=== PATIENT | female | born 1980 | race Asian ===

== ENCOUNTER 2018-06-13 13:45 | Observation (INO) | payer OTHER, SELFPAY ==
[~2018-06-13] VITALS: Ht 160 cm; Wt 59.4 kg
== END 2018-06-13 15:30 | disposition home or self-care (01) ==
LOC: SPU 13:45
PROVIDERS: ADMIT Obstetrics & Gynecology; ATTEND Obstetrics & Gynecology
DX: O46.93 Antepartum hemorrhage, unspecified, third trimester (principal); O09.523 Supervision of elderly multigravida, third trimester; Z3A.36 36 weeks gestation of pregnancy
CPT/HCPCS: G0378

== ENCOUNTER 2018-06-17 05:25 | Inpatient (IN) | payer OTHER ==
[~2018-06-17] VITALS: Ht 160 cm; Wt 59.0 kg
[2018-06-17] MEDS ORDERED: LR 1,000 ML IV SCH (06:14)
[2018-06-17] MEDS ORDERED: OXYTOCIN/0.9 % SODIUM CHLORIDE 1,000 ML IV SCH ×2 (06:14→08:20)
[2018-06-17] MEDS ORDERED: LR 1,000 ML IV ONE (06:14)
[2018-06-17] MEDS ORDERED: AMPICILLIN SODIUM 1 GM in NS 50 ML IV SCH (06:15)
[2018-06-17] MEDS ORDERED: AMPICILLIN SODIUM 2 GM in NS 100 ML IV ONE (06:15)
[2018-06-17] MEDS ORDERED: NALBUPHINE HCL 10 MG/ML AMP IVP PRN (06:15)
[2018-06-17] MEDS ORDERED: TERBUTALINE SULFATE 1 MG/ML VIAL SUBCUT ONE (06:15)
[2018-06-17] MEDS ORDERED: BETAMET ACET/BETAMET NA PH 30 MG/5 ML VIAL IM ONE (06:15)
[2018-06-17] MEDS ORDERED: AMPICILLIN SODIUM 2 GM VIAL ONE (06:42)
[2018-06-17 07:10] VITALS: BP_SYST 114
[2018-06-17 07:17] LABS: HEMATOCRIT 36.8 % (36-48); HEMOGLOBIN 12.4 g/dL (12.0-16.0); MEAN CORPUSCULAR HEMOGLOBIN 32 pg (27-31); MEAN CORPUSCULAR HGB CONC 34 % (32-36); MEAN CORPUSCULAR VOLUME 94 fL (79.0-98.0); PLATELET COUNT (AUTO) 196 K/uL (130-430); RED BLOOD CELL COUNT(AUTO) 3.92 MIL/uL (4.2-6.2); RED CELL DISTRIBUTION WIDTH 12.9 % (9.0-15.0); WHITE BLOOD COUNT (AUTO) 7.4 K/uL (4.8-10.8)
[2018-06-17] MEDS ORDERED: OXYTOCIN/0.9 % SODIUM CHLORIDE 1,000 ML IV ONE ×2 (08:08→08:20)
[2018-06-17] MEDS ORDERED: METHYLERGONOVINE MALEATE 0.2 MG/ML AMP IM ONE (08:15)
[2018-06-17] MEDS ORDERED: METHYLERGONOVINE MALEATE 0.2 MG TABLET PO PRN ×2 (08:15→08:30)
[2018-06-17] MEDS ORDERED: RHO(D) IMMUNE GLOBULIN/MALTOSE 1500 UNITS/1.3 ML (WINHRO) IM PRN ×2 (08:15→08:30)
[2018-06-17] MEDS ORDERED: WITCH HAZEL LEAF 1 MED.PAD MED.PAD TP PRN ×2 (08:15→08:30)
[2018-06-17] MEDS ORDERED: DOCUSATE SODIUM 100 MG CAPSULE PO PRN ×2 (08:15→08:30)
[2018-06-17] MEDS ORDERED: ACETAMINOPHEN 325 MG TABLET PO PRN (08:15)
[2018-06-17] MEDS ORDERED: SENNOSIDES/DOCUSATE SODIUM 1 TAB TABLET(SENOKOT-S) PO PRN ×2 (08:15→08:30)
[2018-06-17] MEDS ORDERED: LANOLIN 7 GM OINT. TP PRN ×2 (08:15→08:30)
[2018-06-17] MEDS ORDERED: ANUSOL 1 EA SUPP.RECT (PREPARATION H) RC PRN ×2 (08:15→08:30)
[2018-06-17] MEDS ORDERED: HYDROCORTISONE 0.5%, 28.35 GM TOPICAL CREAM TP PRN ×2 (08:15→08:30)
[2018-06-17] MEDS ORDERED: MEASLES,MUMPS&RUBELLA VACC/PF 12500 UNIT/0.5 ML VIAL SUBQ PRN ×2 (08:15→08:30)
[2018-06-17] MEDS ORDERED: OXYCODONE/ACETAMINOPHEN 5-325 TABLET PO PRN ×2 (08:15)
[2018-06-17] MEDS ORDERED: DERMOPLAST SPRAY TP PRN ×2 (08:15→08:30)
[2018-06-17] MEDS ORDERED: DIPH-TET-PERTUS Vaccine 0.5 ML VIAL (ADACEL) I.M. PRN (08:30)
[2018-06-17 10:49] LABS: BAND % (MANUAL) 1 % (0-6); BASOPHILS % (MANUAL) 0 % (0-2); EOSINOPHILS % (MANUAL) 1 % (0-7); LYMPHOCYTES % (MANUAL) 13 % (20-46); MONOCYTES % (MANUAL) 6 % (0-11)
[2018-06-17] MEDS: IBUPROFEN 600 MG TABLET PO SCH ×2 (11:36→17:59)
[2018-06-17] MEDS ORDERED: IBUPROFEN 600 MG TABLET PO SCH (12:00)
[2018-06-17] MEDS ORDERED: LIDOCAINE PF 1% 30ML(POUR BTL) INJ ONE (12:07)
[2018-06-17] MEDS ORDERED: TEMAZEPAM 15 MG CAPSULE PO PRN (21:00)
[2018-06-18] MEDS: IBUPROFEN 600 MG TABLET PO SCH ×4 (00:04→18:00)
[2018-06-18 07:34] LABS: HEMOGLOBIN 11.1 g/dL (12.0-16.0)
== END 2018-06-18 19:15 | disposition home or self-care (01) | DRG 560 ==
LOC: SPU 05:25
PROVIDERS: ADMIT Obstetrics & Gynecology; ATTEND Obstetrics & Gynecology
PROC: 10E0XZZ Delivery of Products of Conception, External Approach (ICD-10-PCS; principal; 2018-06-17)
DX: O60.14X0 Preterm labor third trimester with preterm delivery third trimester, not applicable or unspecified (principal); O69.81X0 Labor and delivery complicated by cord around neck, without compression, not applicable or unspecified; Z3A.36 36 weeks gestation of pregnancy; Z37.0 Single live birth; O99.824 Streptococcus B carrier state complicating childbirth
CPT/HCPCS: 36415; 85007; 85018-TC; 85027; 86592; 86886; 86900; 86901; 90656; J0290; J2001; J2590